=== PATIENT | female | born 1970 | race Hispanic/Latino ===

== ENCOUNTER → 2021-09-03 | Outpatient (CLI) | payer BC ==
[~2021-09-03] MED LIST: ASPI-1197 PO; ATOR40TA69 PO; CARV6.2579 PO; ERGO50CA PO; FURO-151 PO; SACU1TAB PO; SPIR25TA PO
== END | disposition home or self-care (01) ==
LOC: RAH 10:23
PROVIDERS: ATTEND Internal Medicine Cardiovascular Disease
DX: I50.22 Chronic systolic (congestive) heart failure (principal)
CPT/HCPCS: 71046

== ENCOUNTER → 2022-08-19 | Outpatient (CLI) | payer BC ==
[~2022-08-19] MED LIST changes: +REGADENOSON 0.4 MG/5 ML PF SYG IVP SCH
== END | disposition home or self-care (01) ==
LOC: SHCH 13:43
PROVIDERS: ATTEND Internal Medicine Cardiovascular Disease
DX: I50.22 Chronic systolic (congestive) heart failure (principal); I51.89 Other ill-defined heart diseases
CPT/HCPCS: 78481; A9512

== ENCOUNTER → 2024-11-06 | Outpatient (CLI) | payer BC ==
[~2024-11-06] MED LIST changes: -REGADENOSON 0.4 MG/5 ML PF SYG IVP SCH
--- NOTE | 2024-11-06 15:43 | HMCIMG ---
ESOPHAGUS REASON: DYSPHAGIA COMPARISON: None TECHNIQUE: Air contrast cine esophagram was performed. 6 short cine sequences were acquired. Fluoroscopy time was 0.3 minutes. FINDINGS: There is normal esophageal peristalsis. Esophagus appears unremarkable. There is no mass, stone or obstructing lesion. There is no hiatal hernia. There is no laryngeal penetration or aspiration during the exam. IMPRESSION: 1. Normal study esophagram.
== END | disposition home or self-care (01) ==
LOC: RAH 09:31
PROVIDERS: ATTEND Internal Medicine Nephrology
DX: R13.10 Dysphagia, unspecified (principal)
CPT/HCPCS: 74220

== ENCOUNTER → 2024-12-25 | Outpatient (CLI) | payer BC ==
--- NOTE | 2024-12-25 18:53 | HMCIMG ---
EXAM: CR Chest, 2 View. CLINICAL HISTORY: CHRONIC SYSTOLIC CONGESTIVE HEART FAILURE COMPARISON: X-ray chest 09/03/2021 FINDINGS: LUNGS: There is no mass, infiltrate, or acute pulmonary abnormality. PLEURAL SPACES: No evidence of pleural effusion or pneumothorax. MEDIASTINUM: Cardiac size and mediastinal contours within normal limits. BONES: No aggressive appearing osseous lesion seen. IMPRESSION: No acute cardiopulmonary pathology is evident. /[place]
== END | disposition home or self-care (01) ==
LOC: RAH 08:57
PROVIDERS: ATTEND Internal Medicine Cardiovascular Disease
DX: I11.0 Hypertensive heart disease with heart failure (principal); I50.22 Chronic systolic (congestive) heart failure
CPT/HCPCS: 71046